=== PATIENT | male | born 1940 | race Caucasian/White ===

== ENCOUNTER 2018-02-04 06:43 | Observation (INO) ==
--- NOTE | 2018-02-04 08:14 | ED ---
HPI General Chief complaint: Chest Pain Stated complaint: Burning in chest and around side to arm pit/rt hebert Time Seen by Provider: 02/04/18 07:07 History of Present Illness HPI narrative: Patient is a 77 year old male history of endarterectomy on left side over a decade ago presents with burning right sided chest pain for the past 5 days. patient states he thinks he is getting shingles but has no rash yet. He became a little concerned stating he felt the symptoms were moving deep. The only radiation is into his right armpit. No sob, no dizziness, no N/ V/D. He had a checkup in November including Echocardiogram. He states everything was normal. Location: chest Radiation: back Severity: mild Quality: burning Related Data Home Medications Medication Instructions Recorded Confirmed aspirin 81 mg PO DAILY 02/04/18 02/04/18 cholecalciferol (vitamin D3) 1,000 unit PO DAILY 02/04/18 02/04/18 [Vitamin D3] clopidogrel [Plavix] 75 mg PO DAILY 02/04/18 02/04/18 cyanocobalamin (vitamin B-12) 1,000 mcg PO DAILY 02/04/18 02/04/18 [Vitamin B-12] levothyroxine 75 mcg PO DAILY 02/04/18 02/04/18 rosuvastatin 20 mg PO DAILY 02/04/18 02/04/18 Allergies Allergy/AdvReac Type Severity Reaction Status Date / Time No Known Allergies Allergy Uncoded 01/23/15 15:30 Review of Systems ROS Unobtainable All other systems reviewed negative except as stated in HPI [facility] Medical History Medical History COPD (chronic obstructive pulmonary disease) (Acute) Colon polyps (Acute) Coronary artery disease (Acute) Dysphagia (Acute) FHx: carotid endarterectomy (Acute) GI bleed (Acute) Hypercholesteremia (Acute) Hypothyroid (Acute) Irregular heart beat (Acute) Pneumonia (Acute) Shingles (Acute) Surgical History Surgical History History of endarterectomy (Acute) Hx of tonsillectomy (Acute) Family History Family History Other CHF (congestive heart failure) Family history of brain aneurysm Social History Social History Substance History: No History of Abuse Second Hand Smoke Exposure: No Smoking Status: Former smoker How Often Do You Have a Drink Containing Alcohol: Monthly or less (quit drinking since 2013, states he used to be a heavy drinker as he is Danielle) Recent Travel in [facility] within the Last 8 Weeks: No Recent Out of Country Travel within the Last 8 Weeks: No Immunization History Tetanus Immunization: Unsure Hx Influenza Vaccine This Season: No Exam Narrative Exam Narrative: GENERAL: Well-developed well-nourished no obvious distress SKIN: Focused skin assessment warm/dry. No rash seen on the right flank or right chest peer HEAD: Atraumatic. Normocephalic. EYES: Pupils equal and round. No scleral icterus. No injection or drainage. ENT: No nasal bleeding or discharge. Mucous membranes pink and moist. NECK: Trachea midline. No JVD. CARDIOVASCULAR: Bradycardic and irregular. No murmur appreciated. RESPIRATORY: No accessory muscle use. Clear to auscultation. Breath sounds equal bilaterally. GASTROINTESTINAL: Abdomen soft, non-tender, nondistended. Hepatic and splenic margins not palpable. MUSCULOSKELETAL: No obvious deformities. No clubbing. No cyanosis. No edema. NEUROLOGICAL: Awake and alert. No obvious cranial nerve deficits. Motor grossly within normal limits. Normal speech. PSYCHIATRIC: Appropriate mood and affect; insight and judgment normal. Course Hospital Course: Patient was room to the emergency department, he appears well in obvious distress and EKG shows second-degree heart block with P waves without QRS is, machine reads a type II block however I really appreciate this more as a weekly box. Patient has no history of this but does have a history of right bundle branch block which EKG does show. He appears quite comfortable and his chest pain is really very atypical for ACS. He had a stress test over 8 years ago but was inconclusive. He has never had a cardiac catheterization. Did not require any pain medicine in the emergency department even when offered. Given his abnormal EKG even with a negative chest x-ray and negative troponins I recommended observation status for him and he is agreeable. Discussed with Dr. Jacob Initial Documented Vital Signs Temperature 97.5 F L 02/04/18 06:58 Pulse Rate 78 02/04/18 06:58 Respiratory Rate 16 02/04/18 06:58 Blood Pressure 165/84 H 02/04/18 06:58 Pulse Oximetry 96 02/04/18 06:58 Last Documented Vital Signs Temperature 97.6 F 02/04/18 16:41 Pulse Rate 76 02/04/18 16:41 Respiratory Rate 18 02/04/18 16:41 Blood Pressure 125/72 02/04/18 16:41 Pulse Oximetry 96 02/04/18 16:41 Medical Decision Making MDM Narrative Medical decision making narrative: Patient seen and examined. High MDM, see course above. Differential Diagnosis Differential Diagnosis: Arrythmia, Shingle prodrome, ACS, AMI, CAD. Lab Data Result diagrams: 02/04/18 08:35 02/04/18 08:35 Lab Results 02/04/18 02/04/18 02/04/18 Range/Units 08:35 08:35 08:35 WBC 5.2 (4.0-11.0) th/mm3 RBC 4.18 L (4.50-5.90) mil/mm3 Hgb 13.0 (13.0-17.0) gm/dL Hct 39.2 (39.0-51.0) % MCV 93.9 (80.0-100.0) fL MCH 31.1 (27.0-34.0) pg MCHC 33.1 (32.0-36.0) % RDW 13.1 (11.6-17.2) % Plt Count 233 (150-450) th/mm3 MPV 8.3 (7.0-11.0) fL Neut % (Auto) 62.4 (16.0-70.0) % Lymph % (Auto) 20.2 (9.0-44.0) % [place] % (Auto) 13.6 H (0.0-8.0) % Eos % (Auto) 2.6 (0.0-4.0) % Baso % (Auto) 1.2 (0.0-2.0) % Neut # (Auto) 3.2 (1.8-7.7) th/mm3 Lymph # (Auto) 1.0 (1.0-4.8) th/mm3 [place] # (Auto) 0.7 (0.0-0.9) th/mm3 Eos # (Auto) 0.1 (0.0-0.4) th/mm3 Baso # (Auto) 0.1 (0.0-0.2) th/mm3 WBC Differential . Differential Comment Auto diff final PT 10.7 (9.8-11.6) sec INR 1.1 Ratio APTT 25.7 (24.3-30.1) sec Sodium 138 (136-145) meq/L Potassium 4.3 (3.5-5.1) meq/L Chloride 104 (98-107) meq/L Carbon Dioxide 25.7 (21.0-32.0) meq/L Anion Gap 8 (5-15) meq/L BUN 32 H (7-18) mg/dL Creatinine 1.08 (0.60-1.30) mg/dL Estimated GFR 66 L (>89) mL/min Random Glucose 96 (74-106) mg/dL Calcium 9.0 (8.5-10.1) mg/dL Magnesium 2.1 (1.5-2.5) mg/dL Total Creatine Kinase (39-308) U/L Troponin I Less than 0.02 L (0.02-0.05) ng/mL 02/04/18 Range/Units 13:41 WBC (4.0-11.0) th/mm3 RBC (4.50-5.90) mil/mm3 Hgb (13.0-17.0) gm/dL Hct (39.0-51.0) % MCV (80.0-100.0) fL MCH (27.0-34.0) pg MCHC (32.0-36.0) % RDW (11.6-17.2) % Plt Count (150-450) th/mm3 MPV (7.0-11.0) fL Neut % (Auto) (16.0-70.0) % Lymph % (Auto) (9.0-44.0) % [place] % (Auto) (0.0-8.0) % Eos % (Auto) (0.0-4.0) % Baso % (Auto) (0.0-2.0) % Neut # (Auto) (1.8-7.7) th/mm3 Lymph # (Auto) (1.0-4.8) th/mm3 [place] # (Auto) (0.0-0.9) th/mm3 Eos # (Auto) (0.0-0.4) th/mm3 Baso # (Auto) (0.0-0.2) th/mm3 WBC Differential Differential Comment PT (9.8-11.6) sec INR Ratio APTT (24.3-30.1) sec Sodium (136-145) meq/L Potassium (3.5-5.1) meq/L Chloride (98-107) meq/L Carbon Dioxide (21.0-32.0) meq/L Anion Gap (5-15) meq/L BUN (7-18) mg/dL Creatinine (0.60-1.30) mg/dL Estimated GFR (>89) mL/min Random Glucose (74-106) mg/dL Calcium (8.5-10.1) mg/dL Magnesium (1.5-2.5) mg/dL Total Creatine Kinase 105 (39-308) U/L Troponin I Less than 0.02 L (0.02-0.05) ng/mL Imaging Data Radiologist's impression: ITS Impressions Chest X-Ray 02/04/18 08:03 CONCLUSION: Chronic appearing interstitial changes. Discharge Plan Discharge Disposition Patient Disposition: 30 Still Patient Discharge Condition Condition: Stable Discharge Details Discharge Problem: Chest pain, Heart block AV second degree Physicians Team ED Provider: Satya Sherwood Primary Care Provider: Aleksey Hathaway Attending Provider: Stephanie Jacob Discharge Interventions Interventions: ED Discharge Assessment Last Done: 02/04/18 13:44 Vital Signs Last Done: 02/04/18 13:46 Status ED Status: Left Department Discharge Information Discharge Date/Time: 02/04/18 14:06
--- NOTE | 2018-02-04 08:39 | XR ---
EXAM DATE: 02/04/2018 8:36 AM EDT AGE/SEX: 77 years / Male INDICATIONS: Chest pain. Shortness of breath. CLINICAL DATA: This is the patient's initial encounter. Patient reports that signs and symptoms have been present for 2 days and indicates a pain score of 6/10. MEDICAL/SURGICAL HISTORY: Chronic obstructive pulmonary disease. . Lest side nodule biopsy. COMPARISON: [facility], CHEST PA & LAT, 01/23/2015. . FINDINGS: PA and lateral views of the chest demonstrate the lungs to be symmetrically aerated without evidence of mass, infiltrate or effusion. There are some chronic appearing interstitial changes. The cardiomed iastinal contours are unremarkable. Heart mildly enlarged. Osseous structures are intact. Degenerativ e changes thoracic spine. CONCLUSION: Chronic appearing interstitial changes. Electronically signed by: Matt David MD 02/04/2018 8:38 AM EDT
[2018-02-04 08:58] LABS: Baso # (Auto) 0.1 th/mm3 (0.0-0.2); Baso % (Auto) 1.2 % (0.0-2.0); Eos # (Auto) 0.1 th/mm3 (0.0-0.4); Eos % (Auto) 2.6 % (0.0-4.0); Hematocrit 39.2 % (39.0-51.0); Lymph % (Auto) 20.2 % (9.0-44.0); Mean Corpuscular HGB Conc 33.1 % (32.0-36.0); Mean Corpuscular Hemoglobin 31.1 pg (27.0-34.0); Mean Corpuscular Volume 93.9 fL (80.0-100.0); Mean Platelet Volume 8.3 fL (7.0-11.0); Mono # (Auto) 0.7 th/mm3 (0.0-0.9); Mono % (Auto) 13.6 % (0.0-8.0); Neut # (Auto) 3.2 th/mm3 (1.8-7.7); Neut % (Auto) 62.4 % (16.0-70.0); Platelet Count 233 th/mm3 (150-450); Red Blood Count 4.18 mil/mm3 (4.50-5.90); Red Cell Distribution Width 13.1 % (11.6-17.2); White Blood Count 5.2 th/mm3 (4.0-11.0)
[2018-02-04 09:10] LABS: Activated Partial Thrombo Time 25.7 sec (24.3-30.1); INR 1.1 Ratio; Prothrombin Time 10.7 sec (9.8-11.6)
[2018-02-04 09:15] LABS: Anion Gap 8 meq/L (5-15); Blood Urea Nitrogen 32 mg/dL (7-18); Carbon Dioxide 25.7 meq/L (21.0-32.0); Chloride 104 meq/L (98-107); Glomerular Filtration Rate 66 mL/min (>89); Glucose,Random 96 mg/dL (74-106); Magnesium 2.1 mg/dL (1.5-2.5); Potassium 4.3 meq/L (3.5-5.1); Sodium 138 meq/L (136-145)
[2018-02-04] MEDS ORDERED: Morphine Inj 4 MG/ML Vial IV.PUSH PRN (11:36)
[2018-02-04 15:15] LABS: Creatine Kinase 105 U/L (39-308)
--- NOTE | 2018-02-04 15:38 | P.HP ---
History of Present Illness Primary Care Physician: Aleksey Hathaway MD History of Present Illness: Patient is a 77-year-old male with past medical history of COPD, left internal carotid stenosis status post endarterectomy, hypothyroidism, hyperlipidemia, hx right bundle branch block , history of lung nodule noncancerous, history of GI bleed presented to the emergency room with complaints of right-sided chest pains. He states his been going on for 5 days however started as a tingling sensation which then turned to a burning sensation and now states that it "moving deeper ". States he has not been feeling good since. Pain is worse with movement. He states the pain lingers at a 4 out of 10. The discomfort is constant. He tried to take it easy on Sunday and Sunday but noticed that the pain somewhat radiated to his "kidney area ". He states since his been having the pain has been more sedentary than normal. He is afraid to take deep breaths secondary to the pain but states the pain is located on his ribs mainly. He sees Dr. Hathaway as an outpatient but does not see a executive search consultant. He states that he was told that he had a problem with 1 of his valves and that is why he has been monitored via echocardiogram. His father had a valve problem which did lead to congestive heart failure. Patient denies any fevers but admits to chills at times. Denies any nausea or vomiting. Denies any jaw pain, any radiation to his arms, and any abdominal pain. Pt tells me that he had chicken pox in the past but at one point his PCP suspected shingles. He also states that he thinks he was diagnosed w lyme disease in the past. of note: pt states that his court transcriber [facility] was concerned about his heart and had ordered a stress test in 2013 which per pt was inconclusive. His court transcriber "didn't like the way his heart looked". - Diagnosis (1) Chest pain - Inpatient Certification If this patient has been admitted as an Inpatient: I certify that the inpatient services were ordered in accordance with Medicare regulations governing the order. This includes certification that hospital inpatient services are reasonable and necessary and in the case of services not specified as inpatient-only under 42 CFR 419.22(n), that they are appropriately provided as inpatient services in accordance to with the 2-midnight benchmark under 43 CFR 412.3(e) Review of Systems All other systems reviewed negative except as stated in HPI PMFSH - History History Provided By: Patient, Family Member - Medical History Medical History: Medical History (Last Reviewed 02/04/18 @ 15:33 by Stephanie Jacob MD) COPD (chronic obstructive pulmonary disease) Colon polyps Coronary artery disease Dysphagia FHx: carotid endarterectomy GI bleed Hypercholesteremia Hypothyroid Irregular heart beat Pneumonia Shingles - Surgical History Surgical History: Surgical History (Last Updated 02/04/18 @ 15:34 by Stephanie Jacob MD) History of endarterectomy Hx of tonsillectomy - Family History Family History: Family History (Last Updated 02/04/18 @ 15:36 by Stephanie Jacob MD) Other CHF (congestive heart failure) Family history of brain aneurysm - Tobacco History Tobacco Use In Past 30 Days: No (quit smoking 2004, used to smoke 2ppd x 30 yrs) Smoking Status: Former smoker - Alcohol History How Often Do You Have a Drink Containing Alcohol: Monthly or less (quit drinking since 2012, states he used to be a heavy drinker as he is Danielle) - Substance Use History Substance History: No History of Abuse - Travel History Recent Travel in the [place] Within the Last 8 Weeks: No Recent Travel Out of the Country Within the Last 8 Weeks: No - Immunization History Tetanus Immunization: Unsure Hx Influenza Vaccine This Season: No Medications and Allergies Active Medications: Active Medications Aspirin (Aspirin Chew) 81 mg PO DAILY KERVIN Atorvastatin Calcium (Lipitor) 40 mg PO DAILY KERVIN Clopidogrel Bisulfate (Plavix) 75 mg PO DAILY KERVIN Levothyroxine Sodium (Synthroid) 75 mcg PO DAILY KERVIN Morphine Sulfate (Morphine Inj) 1 mg IV.PUSH Q3H PRN PRN Reason: chest pain Nitroglycerin (Nitro-Bid 2% Oint) 1 inch TOPICAL Q6HR PRN PRN Reason: CHEST PAIN Sodium Chloride (Ns Flush) 2 ml IV.FLUSH UNSCH PRN PRN Reason: FLUSH AFTER USING IV ACCESS Last Admin: 02/04/18 10:20 Dose: 2 ml Sodium Chloride (Ns Flush) 2 ml IV.FLUSH BID KERVIN Sodium Chloride (Ns Flush) 2 ml IV.FLUSH PRN PRN PRN Reason: FLUSH AFTER USING IV ACCESS Allergies Allergy/AdvReac Type Severity Reaction Status Date / Time No Known Allergies Allergy Uncoded 01/23/15 15:30 Home Medications Medication Instructions Recorded Confirmed Type aspirin 81 mg PO DAILY 02/04/18 02/04/18 History cholecalciferol (vitamin D3) 1,000 unit PO DAILY 02/04/18 02/04/18 History [Vitamin D3] clopidogrel [Plavix] 75 mg PO DAILY 02/04/18 02/04/18 History cyanocobalamin (vitamin B-12) 1,000 mcg PO DAILY 02/04/18 02/04/18 History [Vitamin B-12] levothyroxine 75 mcg PO DAILY 02/04/18 02/04/18 History rosuvastatin 20 mg PO DAILY 02/04/18 02/04/18 History Exam Vital signs: Vital Signs 02/04/18 06:58 02/04/18 08:36 02/04/18 11:39 Temperature 97.5 F L Pulse Rate 78 56 L 63 Respiratory Rate 16 16 15 Blood Pressure 165/84 H 121/74 135/82 Pulse Oximetry 96 94 L 96 02/04/18 13:46 02/04/18 13:57 Temperature 98.2 F Pulse Rate 60 73 Respiratory Rate 14 18 Blood Pressure 132/78 141/76 H Pulse Oximetry 98 95 Intake & Output 02/03/18 02/04/18 02/04/18 18:59 06:59 18:59 Weight 78.961 kg 77.6 kg Other: Weight On Admission 77.6 kg Narrative: GENERAL: SKIN: Warm and dry. HEAD: Atraumatic. Normocephalic. EYES: Pupils equal and round. No scleral icterus. No injection or drainage. ENT: No nasal bleeding or discharge. Mucous membranes pink and moist. NECK: Trachea midline. No JVD. CARDIOVASCULAR: Regular rate and rhythm w 1-2/6SEM. RESPIRATORY: No accessory muscle use. Clear to auscultation. Breath sounds equal bilaterally. touching the right side of his chest is painful, I do not note any rash or open sores. GASTROINTESTINAL: Abdomen soft, non-tender, nondistended. Hepatic and splenic margins not palpable. MUSCULOSKELETAL: Extremities without edema. No obvious deformities. NEUROLOGICAL: Awake and alert. Motor grossly within normal limits. Normal speech. Results - Labs CBC & Chem 7: 02/04/18 08:35 02/04/18 08:35 Labs: Laboratory Results - last 24 hr 07/09/2302/04/18 02/04/18 08:35 08:35 08:35 WBC 5.2 RBC 4.18 L Hgb 13.0 Hct 39.2 MCV 93.9 MCH 31.1 MCHC 33.1 RDW 13.1 Plt Count 233 MPV 8.3 Neut % (Auto) 62.4 Lymph % (Auto) 20.2 [place] % (Auto) 13.6 H Eos % (Auto) 2.6 Baso % (Auto) 1.2 Neut # (Auto) 3.2 Lymph # (Auto) 1.0 [place] # (Auto) 0.7 Eos # (Auto) 0.1 Baso # (Auto) 0.1 WBC Differential . Differential Comment Auto diff final PT 10.7 INR 1.1 APTT 25.7 Sodium 138 Potassium 4.3 Chloride 104 Carbon Dioxide 25.7 Anion Gap 8 BUN 32 H Creatinine 1.08 Estimated GFR 66 L Random Glucose 96 Calcium 9.0 Magnesium 2.1 Total Creatine Kinase Troponin I Less than 0.02 L 02/04/18 13:41 WBC RBC Hgb Hct MCV MCH MCHC RDW Plt Count MPV Neut % (Auto) Lymph % (Auto) [place] % (Auto) Eos % (Auto) Baso % (Auto) Neut # (Auto) Lymph # (Auto) [place] # (Auto) Eos # (Auto) Baso # (Auto) WBC Differential Differential Comment PT INR APTT Sodium Potassium Chloride Carbon Dioxide Anion Gap BUN Creatinine Estimated GFR Random Glucose Calcium Magnesium Total Creatine Kinase 105 Troponin I Less than 0.02 L - Imaging Impressions Chest X-Ray 02/04/18 08:03 CONCLUSION: Chronic appearing interstitial changes. Caprini VTE Risk Assessment Caprini VTE Risk Assessment: Moderate/High Risk (score >= 2) Caprini Risk Assessment Model: Point Value = 1 Point Value = 2 Point Value = 3 Point Value = 5 Age 41-60 Minor surgery BMI > 25 kg/m2 Swollen legs Varicose veins or History of unexplained or recurrent spontaneous Oral contraceptives or hormone replacement Sepsis (< 1 month) Serious lung disease, including pneumonia (< 1 month) Abnormal pulmonary function Acute myocardial infarction Congestive heart failure (< 1 month) History of inflammatory bowel disease Medical patient at bed rest Age 61-74 Arthroscopic surgery Major open surgery (> 45 min) Laparoscopic surgery (> 45 min) Malignancy Confined to bed (> 72 hours) Immobilizing plaster cast Central venous access Age >= 75 History of VTE Family history of VTE Factor V Leiden Prothrombin [id number] Lupus anticoagulant Anticardiolipin antibodies Elevated serum homocysteine Heparin-induced thrombocytopenia Other congenital or acquired thrombophilia Stroke (< 1 month) Elective arthroplasty Hip, pelvis, or leg fracture Acute spinal cord injury (< 1 month) Prophylaxis Regimen: Total Risk Factor Score Risk Level Prophylaxis Regimen 0-1 Low Early ambulation 2 Moderate Order ONE of the following: *Sequential Compression Device (SCD) *Heparin 5000 units SQ BID 3-4 Higher Order ONE of the following medications: *Heparin 5000 units SQ TID *Enoxaparin/Lovenox 40 mg SQ daily (WT < 150 kg, CrCl > 30 mL/min) *Enoxaparin/Lovenox 30 mg SQ daily (WT < 150 kg, CrCl > 10-29 mL/min) *Enoxaparin/Lovenox 30 mg SQ BID (WT < 150 kg, CrCl > 30 mL/min) AND/OR *Sequential Compression Device (SCD) 5 or more Highest Order ONE of the following medications: *Heparin 5000 units SQ TID (Preferred with Epidurals) *Enoxaparin/Lovenox 40 mg SQ daily (WT < 150 kg, CrCl > 30 mL/min) *Enoxaparin/Lovenox 30 mg SQ daily (WT < 150 kg, CrCl > 10-29 mL/min) *Enoxaparin/Lovenox 30 mg SQ BID (WT < 150 kg, CrCl > 30 mL/min) AND *Sequential Compression Device (SCD) Assessment and Plan - Assessment (1) Chest pain Code(s): R07.9 - Chest pain, unspecified Status: Acute - Plan 77 yr old male admitted for chest pains: x 5 days. pt concerned about shingles as the pain initially started on the right side, initially as started as a tingling sensation, then burning and now "moving deeper". Initial trop neg and will continue to trend and will obtain also serial EKGs. Initial EKG was concerning for 2nd degree AV block. Will consult cards for further eval and recs. Morphine, nitro prn ordered. Pt already of ASA and plavix which I have continued. Pt's pain is atypical and could be the beginning of a shingles outbreak. I will go ahead and start him on acyclovir and see if this helps. vitals reviewed and labs as well. other chronic medical conditions: stable dvt proph: scd, lovenox of note: ECHO done 11/27/17 shows EF of 55-60%. enlarged left atrium, mild aortic stenosis w decreased mobility and mild regurgitation. left ventricle abnormal filling rate. Official report in chart
[2018-02-04] MEDS: Acyclovir 800 MG Tablet PO SCH ×2 (20:05→22:50)
[2018-02-04] MEDS: Enoxaparin Inj 40 MG/0.4 ML Syringe SQ SCH (20:07)
[2018-02-05] MEDS: Acyclovir 800 MG Tablet PO SCH ×3 (05:52→13:11)
[2018-02-05] MEDS ORDERED: Levothyroxine 75 MCG Tablet PO SCH (09:00)
[2018-02-05] MEDS: Enoxaparin Inj 40 MG/0.4 ML Syringe SQ SCH (09:16)
--- NOTE | 2018-02-05 14:07 | P.PN ---
Subjective Interval history: Follow-up visit chest pain, new second-degree heart block, shingles. Patient seen and examined today. at the bedside. States he is feeling a lot better. Right-sided chest pain has improved although she he continues to feel tingling sensation, tenderness to palpation that goes towards his back from under his breast area. Denies SOB/ dyspnea. Denies palpitations, headaches, dizziness. Denies fevers, chills, n/v/d. Denies dysuria. Physical Exam Vital signs: Vital Signs 02/04/18 16:41 02/04/18 20:00 02/05/18 00:00 Temperature 97.6 F 98.4 F 98.5 F Pulse Rate 76 64 62 Respiratory Rate 18 17 17 Blood Pressure 125/72 125/60 115/64 Pulse Oximetry 96 95 95 02/05/18 02:25 02/05/18 04:00 02/05/18 04:40 Temperature 98.5 F Pulse Rate 66 55 L 58 L Respiratory Rate 16 Blood Pressure 120/57 L Pulse Oximetry 98 02/05/18 08:00 02/05/18 12:00 Temperature 97.6 F 98.0 F Pulse Rate 67 62 Respiratory Rate 16 18 Blood Pressure 112/58 L 128/66 Pulse Oximetry 96 97 Intake & Output 02/04/18 02/05/18 02/05/18 18:59 06:59 18:59 Weight 77.6 kg Other: # Voids 2 1 Weight On Admission 77.6 kg Narrative: GENERAL: This is a well-nourished, well-developed patient, in no apparent distress. SKIN: Warm and dry. HEENT: Normocephalic. Pupils equal round and reactive. Nose without bleeding. Airway patent. NECK: Trachea midline. No JVD. Supple. CARDIOVASCULAR: Regular rate and rhythm with 3/6 murmurs, No gallops, or rubs. Tenderness to palpate right sided chest, lateral and back area. RESPIRATORY: Clear to auscultation. Breath sounds equal bilaterally. No wheezes , rales, or rhonchi. GASTROINTESTINAL: Abdomen soft, non-tender, nondistended. Bowel Sounds normoactive x4. MUSCULOSKELETAL: Extremities without clubbing, cyanosis, or edema. NEUROLOGICAL: Awake and alert. Oriented to time, place, person. No focal neuro deficit. Moves all extremities. Normal speech. Results - Labs CBC & Chem 7: 02/04/18 08:35 02/04/18 08:35 Laboratory Results - last 24 hr 02/04/18 13:41 Total Creatine Kinase 105 Troponin I Less than 0.02 L Assessment and Plan - Assessment (1) Chest pain Code(s): R07.9 - Chest pain, unspecified Status: Acute - Plan Patient is a 77-year-old male with past medical history of COPD, left internal carotid stenosis status post endarterectomy, hypothyroidism, hyperlipidemia, hx right bundle branch block , history of lung nodule noncancerous, history of GI bleed presented to the emergency room with complaints of right-sided chest pains. Chest pain 5 days Rule out ACS -Troponin negative 2, CK 105 -EKG reviewed showed sinus bradycardia with second-degree AV block Mobitz type II. -Echocardiogram 11/27/17 shows EF of 55-60%, enlarged left atrium, mild aortic stenosis with decreased mobility and mild regurgitation. Left ventricle abnormal feeling great. -EKG overnight reviewed and showed HR 66, first-degree AV block. -Repeat EKG now -Cardiology consulted. Spoke with Dr. Doty over the phone, he will see the patient in his office. Okay to DC home. Herpetic neurology Possible shingles -Patient was concerned about shingles his chest pain appears to be 5 days with tingling sensation, burning, tenderness to palpate. -Zovirax given and has improved his chest pain -Possible herpetic neuralgia, will start gabapentin low dose 3 times a day DVT prop SCDs Code Status: Full Code Discussed Condition With: Patient, nursing, Dr. Jacob, Dr. Doty Discharge Planning: Plan to DC home today after EKG.
--- NOTE | 2018-02-05 14:10 | ECG ---
Date Performed: 02/04/2018 Time Performed: 08:37:48 PTAGE: 77 years EKG: SINUS BRADYCARDIA WITH 2ND DEGREE AV BLOCK, MOBITZ TYPE I RIGHT BUNDLE BRANCH BLOCK ABNORMA L ECG Compared to PREVIOUS TRACING , second degree AV block now present PREVIOUS TRACIN09/03/2013 11.10 DOCTOR: Aleksey Encinas Interpretating Date/Time 02/05/2018 14:09:18
--- NOTE | 2018-02-05 15:28 | P.DS ---
Date of admission: 02/04/18 11:35 Primary care physician: Aleksey Hathaway MD Attending physician on discharge: Stephanie Jacob Brief History from admission: Patient is a 77-year-old male with past medical history of COPD, left internal carotid stenosis status post endarterectomy, hypothyroidism, hyperlipidemia, hx right bundle branch block , history of lung nodule noncancerous, history of GI bleed presented to the emergency room with complaints of right-sided chest pains. He states his been going on for 5 days however started as a tingling sensation which then turned to a burning sensation and now states that it "moving deeper ". States he has not been feeling good since. Pain is worse with movement. He states the pain lingers at a 4 out of 10. The discomfort is constant. He tried to take it easy on Sunday and Sunday but noticed that the pain somewhat radiated to his "kidney area ". He states since his been having the pain has been more sedentary than normal. He is afraid to take deep breaths secondary to the pain but states the pain is located on his ribs mainly. He sees Dr. Hathaway as an outpatient but does not see a assistant store manager trainee. He states that he was told that he had a problem with 1 of his valves and that is why he has been monitored via echocardiogram. His father had a valve problem which did lead to congestive heart failure. Patient denies any fevers but admits to chills at times. Denies any nausea or vomiting. Denies any jaw pain, any radiation to his arms, and any abdominal pain. Pt tells me that he had chicken pox in the past but at one point his PCP suspected shingles. He also states that he thinks he was diagnosed w lyme disease in the past. 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 His stunt driver "didn't like the way his heart looked". DS: Diagnosis - Discharge Diagnosis (1) Chest pain Status: Acute DS: Summary Hospital Course: Patient is a 77-year-old male with past medical history of COPD, left internal carotid stenosis status post endarterectomy, hypothyroidism, hyperlipidemia, hx right bundle branch block , history of lung nodule noncancerous, history of GI bleed presented to the emergency room with complaints of right-sided chest pains. He has chest pain for 5 days. His EKG showed sinus bradycardia with second-degree AV block Mobitz type II. Negative for troponin 2, CK was 105. Cardiology was consulted and spoke with Dr. goss that he will see the patient in his office okay to [place] home for now. Patient chest pain appears to be herpetic neuralgia, possible shingles. He was started with Zovirax that he will continue at home for 6 more days. Will also be to start him on gabapentin low-dose 100 mg 3 times a day. Patient has met maximal benefits of hospitalization. Clinically stable for discharge. He will follow-up with his PCP and cardiology in the outpatient setting. - Time Spent with Patient Total time spent providing and/or coordinating discharge services: Less than 30 minutes - Quality: VTE Deep Vein Thrombosis/Pulmonary Embolism Present on Admission: No Exam Vital signs: Vital Signs 02/04/18 16:41 02/04/18 20:00 02/05/18 00:00 Temperature 97.6 F 98.4 F 98.5 F Pulse Rate 76 64 62 Respiratory Rate 18 17 17 Blood Pressure 125/72 125/60 115/64 Pulse Oximetry 96 95 95 02/05/18 02:25 02/05/18 04:00 02/05/18 04:40 Temperature 98.5 F Pulse Rate 66 55 L 58 L Respiratory Rate 16 Blood Pressure 120/57 L Pulse Oximetry 98 02/05/18 08:00 02/05/18 12:00 Temperature 97.6 F 98.0 F Pulse Rate 67 62 Respiratory Rate 16 18 Blood Pressure 112/58 L 128/66 Pulse Oximetry 96 97 Intake & Output 02/04/18 02/05/18 02/05/18 18:59 06:59 18:59 Weight 77.6 kg Other: # Voids 2 1 Weight On Admission 77.6 kg Narrative: GENERAL: This is a well-nourished, well-developed patient, in no apparent distress. SKIN: Warm and dry. HEENT: Normocephalic. Pupils equal round and reactive. Nose without bleeding. Airway patent. NECK: Trachea midline. No JVD. Supple. CARDIOVASCULAR: Regular rate and rhythm with 3/6 murmurs, No gallops, or rubs. Tenderness to palpate right sided chest, lateral and back area. RESPIRATORY: Clear to auscultation. Breath sounds equal bilaterally. No wheezes , rales, or rhonchi. GASTROINTESTINAL: Abdomen soft, non-tender, nondistended. Bowel Sounds normoactive x4. MUSCULOSKELETAL: Extremities without clubbing, cyanosis, or edema. NEUROLOGICAL: Awake and alert. Oriented to time, place, person. No focal neuro deficit. Moves all extremities. Normal speech. Results Procedures completed during hospitalization: None - Impressions ITS Impressions Chest X-Ray 02/04/18 08:03 CONCLUSION: Chronic appearing interstitial changes. Discharge Plan - Discharge Disposition Patient Disposition: 01 Discharge Home - Discharge Condition Condition: Stable - Discharge Order Discharge Orders: Discharge Order (Routine); Ordered 02/05/18 Ordered By: Mino Soto - Physicians Team Primary Care Provider: Aleksey Hathaway Attending Provider: Stephanie Jacob
[2018-02-05] MEDS ORDERED: Gabapentin 100 MG Capsule PO SCH (18:00)
--- NOTE | 2018-02-05 21:33 | ECG ---
Date Performed: 02/05/2018 Time Performed: 15:15:37 PTAGE: 77 years EKG: Sinus rhythm WITH FIRST DEGREE AV BLOCK POSSIBLE LEFT ATRIAL ENLARGEMENT RIGHT BUNDLE BRANCH BLOCK ABNORMAL ECG PREVIOUS TRACING : 02/04/2018 14.43 Compared to previous tracing, rate faster DOCTOR: Gris Hawthorne Interpretating Date/Time 02/05/2018 21:31:24
--- NOTE | 2018-02-05 22:00 | ECG ---
Date Performed: 02/04/2018 Time Performed: 14:43:01 PTAGE: 77 years EKG: SINUS BRADYCARDIA WITH 2ND DEGREE AV BLOCK, MOBITZ TYPE 1 RIGHT BUNDLE BRANCH BLOCK ABNORMA L ECG Since the PREVIOUS TRACING , no significant change noted DOCTOR: Gris Hawthorne Interpretating Date/Time 02/05/2018 21:58:54
== END 2018-02-05 16:49 | disposition home or self-care (01) ==
LOC: NEPHCDU 06:43 → NEPE 06:43 → NEDA 06:43 → NEPE 13:46 → NEPHCDU 13:59
PROVIDERS: ADMIT Hospitalist; ATTEND Hospitalist